=== PATIENT | male | born 1995 | race African-American/Black ===

== ENCOUNTER 2024-05-27 02:18 | Emergency (ER) | payer OTHER ==
[~2024-05-27] VITALS: Ht 170.2 cm; Wt 82.3 kg
[2024-05-27 02:26] VITALS: BP 121/67; PULSE 109; RESP 18; TEMP 98; O2SAT 100
[2024-05-27] MEDS: IBUPROFEN 400 MG TABLET PO ONE (03:40)
[2024-05-27] MEDS: HYDROCODONE/ACETAMINOPHEN 5-325 MG TABLET PO ONE (03:40)
== END 2024-05-27 06:20 | disposition home or self-care (01) ==
LOC: EMS 02:18
DX: S61.210A Laceration without foreign body of right index finger without damage to nail, initial encounter (principal); S61.212A Laceration without foreign body of right middle finger without damage to nail, initial encounter; S60.221A Contusion of right hand, initial encounter; W22.8XXA Striking against or struck by other objects, initial encounter; Y93.89 Activity, other specified; Y92.89 Other specified places as the place of occurrence of the external cause; Y99.8 Other external cause status
CPT/HCPCS: 99284; 73130-TC; 73140-TC; Z7502; Z7610